=== PATIENT | male | born 1945 | race Caucasian/White ===

== ENCOUNTER → 2023-11-20 | Outpatient (CLI) | payer MEDICARE | END | disposition home or self-care (01) | LOC: LABWHC1 09:51 | PROVIDERS: ATTEND Orthopaedic Surgery | CPT/HCPCS: 86850; 86900; 86901; 87070 ==

== ENCOUNTER 2023-11-28 07:24 | Day surgery (SDC) | payer MEDICARE ==
[~2023-11-28 07:24] MED LIST: HYDROmorphone 0.5 MG/0.5 ML SYRINGE IVP PRN; LIDOCAINE 1% (10MG/ML) FOR IV START INTRADERMA PRN; MAGNESIUM HYDROXIDE 2,400 MG/30 ML CUP PO PRN; MELOXICAM 7.5 MG TAB PO PRN; NALOXONE 0.4 MG/ML 1 ML VIAL IV PRN; ONDANSETRON 4 MG/2 ML VIAL IVP PRN; TRANEXAMIC 1,000 MG/100ML-NACL 1,000 MG in SALINE 1 100ML.BAG IVPB PRN
[2023-11-28] MEDS: IV FLUID CONTINUATION 1,000 ML IV ONE (07:57)
[2023-11-28] MEDS: LACTATED RINGERS 1,000 ML IV SCH (08:35)
[2023-11-28] MEDS: DEXAMETHASONE SOD PHOSPHATE 4 MG/ML 1 ML VIAL IV ONE (08:35)
[2023-11-28] MEDS: ACETAMINOPHEN TAB 500 MG TAB PO PRN (08:35)
[2023-11-28] MEDS: ONDANSETRON 4 MG/2 ML VIAL IVP ONE (08:35)
[2023-11-28] MEDS: GABAPENTIN 300 MG CAP PO PRN (08:36)
[2023-11-28] MEDS: fentaNYL (PF) 50 MCG/ML 2 ML AMP IVP PRN (08:48)
[2023-11-28] MEDS: MIDAZOLAM 2 MG/2 ML VIAL IV PRN (08:48)
--- NOTE | 2023-11-28 09:08 | P.ANPRN ---
Procedure Note - Anesthesia - Nerve Block Performed Right Ludwig Single Time Out Performed: Yes Date of Procedure: 11/28/23 Procedure Start Time: 08:47 Procedure Stop Time: 08:55 Location of Patient: PreOp Indication: Acute Post-Operative Pain, Requested by Surgeon Sedation Type: Sedate with meaningful contact maintained Preparation: Sterile Prep Position: Supine Needle Types: Pajunk Needle Gauge: 21 Ultrasound used to visualize needle placement: Yes Ultrasound used to observe medication spread: Yes Injectate: 0.5% Ropivacaine (see comment for volume) (15 ml + 10 ml NS + 4 mg Dexamethasone) Blood Aspirated: No Pain Paresthesia on Injection Noted: No Resistance on Injection: Normal Image Stored and Saved: Yes Events: Uneventful and Well Tolerated
[2023-11-28] MEDS: ceFAZolin 1,000 MG in SODIUM CHLORIDE 0.9% 1,000 ML IRRIGATION ONE (09:31)
[2023-11-28] MEDS ORDERED: MIDAZOLAM 2 MG/2 ML VIAL ONE (09:56)
[2023-11-28] MEDS ORDERED: SODIUM CHLORIDE 0.9% (PF) 10 ML VIAL ONE (09:56)
[2023-11-28] MEDS ORDERED: PHENYLEPHRINE 10 MG/ML VIAL ONE (09:56)
[2023-11-28] MEDS ORDERED: TRANEXAMIC 1,000 MG/100ML-NACL PREMIX BAG ONE (09:56)
[2023-11-28] MEDS ORDERED: DEXAMETHASONE SOD PHOSPHATE 4 MG/ML 1 ML VIAL ONE (09:56)
[2023-11-28] MEDS ORDERED: ROPIVACAINE 5 MG/ML 30 ML VIAL ONE (09:56)
[2023-11-28] MEDS ORDERED: fentaNYL (PF) 50 MCG/ML 2 ML AMP ONE (09:56)
[2023-11-28] MEDS ORDERED: PROPOFOL 10 MG/ML 20 ML VIAL IV ONE (09:56)
[2023-11-28] MEDS: ROPIVACAINE 5 MG/ML 30 ML VIAL MISCELLANE ONE ×2 (09:57→10:32)
[2023-11-28] MEDS: LACTATED RINGERS 1,000 ML IV ONE (10:33)
--- NOTE | 2023-11-28 10:36 | P.OP ---
Date of Procedure: 11/28/23 Preoperative Diagnosis: Severe osteoarthritis right hip Postoperative Diagnosis: Severe osteoarthritis right hip Procedure(s) Performed: Right total hip arthroplasty with a direct anterior approach Implants: [employer]hew Polarstem standard size 3 with a collar [employer] R3, 3 hole hemispherical acetabular shell, 54 mm [employer]hew Reflection 6.5 mm cancellus screws, 20 mm, 25 mm [employer] R3, XLPE 20 acetabular liner [employer]hew Oxinium femoral head 36 mm, +8 All components were press-fit. The articulation is Oxinium on polyethylene. Anesthesia: spinal Surgeon: Mirza Flynn Guest Specialist #1: Dalia Samaniego Estimated Blood Loss (ml): 200 Pathology: none sent Condition: stable Disposition: PACU Indications for Procedure: After failure of conservative treatment we discussed the surgical and nonsurgical treatment options at length. Patient wishes to proceed with a total hip arthroplasty with a direct anterior approach. Complications specific to this procedure were discussed at length, including but not limited to infection, leg length discrepancy, dislocation, nerve injury, and fracture. Covid-19 was also discussed at length with the patient, and they are aware of the current policies and procedures. The patient was given the option of delaying surgery, but they elect to proceed knowing these risks. Patient is aware of all these complications and informed consent was obtained Operative Findings: The operative findings are consistent with severe osteoarthritis of the right hip Description of Procedure: The patient was seen and evaluated in the preoperative area and the consent was reviewed. The operative site was marked with a skin marker. The patient verified the procedure and operative site. A ROGELIO block was placed by anesthesia in the preoperative area. The patient was then brought to the operating room and given preoperative antibiotics intravenously. 1 g of Tranexamic acid was also given intravenously. A spinal anesthetic was administered by the anesthesia department. The patient was then placed on the Merna table with the bony prominences well-padded. The hip area was then prepped with a ChloraPrep solution and draped in the usual sterile fashion. A universal timeout was then performed, which confirmed the patient's name, surgical site, ALLERGIES, and procedure being performed on the consent. Next the incision site was located at 1 cm distal and 4 cm lateral to the anterior superior iliac spine. The skin and subcutaneous tissues were sharply incised. Incision was carefully dissected down to the fascia overlying the tensor fascia radha muscle. This fascia was then incised in line with the muscle fibers. Care was taken to stay laterally in order to avoid injuring the lateral femoral cutaneous nerve. Next, using blunt finger dissection, the tensor fascia radha muscle was dissected off its investing fascia. The muscle was then carefully retracted laterally with a cobra retractor over the lateral neck of the femur. Next, the circumflex vessels were identified and cauterized using the Aquamantis device. The anterior hip capsule was then exposed. The capsule was then opened and an inverted T fashion. The retractors were then placed intracapsularly. The retractors were maintained intracapsular throughout the procedure. The proximal femur was then visualized. Fluoroscopic x-rays were then taken in order to evaluate the preoperative leg lengths. A small amount of traction was placed on the leg. The femoral neck was then osteotomized at the appropriate level above the lesser trochanter. A small wedge of bone was then removed from the remaining femoral head. Next, using a corkscrew the femoral head was removed from the acetabulum. On gross visual inspection, the femoral head had complete loss of articular cartilage and multiple periarticular osteophytes. The femoral head was then measured. Attention was then turned to the acetabulum. The acetabulum was exposed and any remaining labrum was excised. Sequential reaming of the acetabulum was performed using fluoroscopic guidance until there was a good bed of bleeding cancellus bone. When the appropriate size was reached, a trial was then placed. The position and fit of the trial was checked with fluoroscopy. The trial was then removed. Then, using fluoroscopic guidance, the final implant was impacted at 20 of anteversion and 40 of abduction, and fully seated in the acetabulum. 2 screws were then placed in the acetabulum. Again fluoroscopy was used to check position of the screws. Next, the liner was then impacted, with a 20 elevated liner located in the anterior superior quadrant. Component locking was confirmed. Attention was then directed to the femur. With the aid of the Merna table, the femur was externally rotated to approximately 130, extended, and adducted under the opposite leg. A side hook was then placed under the proximal femur, and the side hook elevator was used to elevate the proximal femur while releasing the capsule. Retractors were then placed. A capsular release was performed, as well as a release of the conjoined tendon, which afforded excellent visualization of the proximal femur. Next, a box osteotome was used to lateralize the proximal femur. A ferryboat deckhand was then used to locate the femoral canal. Sequential broaching was then performed with appropriate size which afforded excellent fixation in the proximal femur. A trial was then placed with appropriate head and neck, and the hip was gently reduced with the aid of the Merna table. Fluoroscopy was then used to check position of the components, as well as to evaluate the leg lengths and offset. The leg lengths and offset were measured as closely as possible to ensure stability of the hip. The hip was then gently dislocated and the trials were then removed. Final implants were then impacted and the hip was again reduced. Final fluoroscopic x-rays confirmed that the components were in anatomic position. The leg lengths and offset were measured and were found to coincide with the trial measurements. The hip was also taken through range of motion, and found to be stable. The hip was then copiously irrigated with antibiotic solution with pulsatile lavage. The hip was then irrigated with Irrisept solution. The soft tissues were then injected with a ropivacaine solution. A second dose of 1 g of Tranexamic acid was also given intravenously. The fascia was then closed with 2-0 strata fix suture. The subcutaneous tissue was closed with 3-0 Vicryl. The subcuticular tissue was closed with 3-0 strata fix suture. The skin was then closed with Exofin skin glue. After the glue and dried, and Optifoam silver impregnated dressing was applied. The patient was then transferred to the recovery room in stable condition. The physical therapist assistant SYLVIA Sanabria was required due to the complexity of surgery, and the need for skilled neurosurgical nurse for positioning, draping, exposure, retraction, and closure of the wound.
--- NOTE | 2023-11-28 10:54 | FL ---
EXAMINATION TYPE: FL guidance operating room, XR Hip Limited RT Intraoperative/procedural fluoroscopi c services were provided. Total fluoroscopy time is 54 seconds with a total of 3 submitted images to PACS. Please see the operative/procedural note for further details. DAP: 2.4 Gycm2
--- NOTE | 2023-11-28 11:21 | XR ---
EXAMINATION TYPE: XR Hip Limited RT DATE OF EXAM: 11/28/2023 11:15 AM CLINICAL INDICATION: Male, 78 years old with history of Status post hip surgery, assess surgical sid youssef; [facility] COMPARISON: None. TECHNIQUE: XR Hip Limited RT; hip was examined in the frontal projections FINDINGS: Post arthroplasty changes, hardware is intact, alignment is appropriate. No evidence of fra cture. Postoperative changes of the soft tissues with subcutaneous gas. No evidence of any acute osse ous pathology or joint dislocation. IMPRESSION: Hip arthroplasty with hardware intact and in appropriate alignment. No acute fracture.
[2023-11-28] MEDS: SODIUM CHLORIDE 0.9% 1,000 ML IV SCH (16:32)
--- NOTE | 2023-11-28 17:50 | P.CONS ---
History of Present Illness - Reason for Consult Consult date: 11/28/23 Medical Management Requesting physician: Mirza Flynn - History of Present Illness History of Presenting Illness: Patient is a very pleasant 78-year-old male with a past medical history of atrial fibrillation status post ablation and pacemaker placement on anticoagulation with Eliquis, hypertension, hyperlipidemia, and osteoarthritis. He is currently admitted under orthopedic surgery team status post elective right total hip arthroplasty completed by Dr. Flynn secondary to severe osteoarthritis of right hip. We were consulted for medical management throughout patient's hospitalization. Patient seen and fully evaluated at bedside in room 457. He reports controlled postoperative pain at this time and denies having any postoperative pain rated 2 out of 10 at this time. Denies postoperative nausea or vomiting. Patient tolerating oral intake with regular diet well. He denies experiencing any urinary retention stating urinating without difficulties after completion of surgical procedure. Patient denies having any headache, lightheadedness, dizziness, chest pain, palpitations, shortness of breath, cough or congestion, abdominal pain, nausea, vomiting, or experiencing any focal numbness or weakness in his extremities. Review of systems: Pertinent positives and negatives as discussed in HPI, a complete review of systems was performed and all other systems are negative. Physical exam: Vital signs reviewed and stable. General: Nontoxic, no distress and appears stated age. Derm: Skin warm and dry, normal coloration for ethnicity. Head: Atraumatic, normocephalic and symmetric. Eyes: EOM's intact, no lid lag, and anicteric sclera Mouth: no lip lesions, mucus membranes moist Cardiovascular: regular rate and rhythm with normal S1S2, no murmur, positive posterior tibial pulses bilaterally, and cap refill < 2 seconds. Lungs: Respirations even, regular, and unlabored on room air. Lungs CTA bilaterally, no rhonchi, no rales, no wheezing, and no accessory muscle usage. Abdominal: soft, nontender to palpation, no guarding, no appreciable organomegaly Ext: Movement and sensation intact.. No gross muscle atrophy, no edema, no contractures. Postoperative dressing intact to right lateral hip, no surrounding erythema, bruising, or drainage. Neuro: Speech clear, face symmetrical and CN II-XII grossly intact with no noted focal neuro deficits Psych: Alert and oriented to person, place, time, and situation. Appropriate and pleasant affect. Assessment and Plan of Care: Status post right total hip arthroplasty Management by primary admitting orthopedic surgery team including DVT prophylaxis, pain management, wound/dressing management, weightbearing, and PT/OT. Paroxysmal atrial fibrillation Continue Eliquis 5 mg twice daily once cleared by orthopedic surgery team to resume, currently they have placed patient on 2.5 mg twice daily. Continue metoprolol 50 mg daily. Hypertension Continue daily medication regimen with metoprolol XL 50 mg daily. Hyperlipidemia Continue daily medication regimen with simvastatin 20 mg nightly. Vital signs reviewed: Blood pressure 127/76, heart rate 91, respiratory rate 17, temp 98.0 F, and SpO2 of 96% on room air. Thank you for allowing us to participate in the care of this pleasant patient. Do not hesitate to contact us with questions. Someone can be reached from the [facility] hospitalist group all hours of the day at [phone] or via [employer]. Patient was seen independently by Nurse Practitioner. This document was prepared using [email or web address] dictation software. Please allow for errors in human resources hr generalist while rare they do occur. I reviewed the documentation as provided by the ZANDRA above, who is the original author of this note. I agree with the documented assessment and plan, with the following changes: none Medications and Allergies Home Medications Medication Instructions Recorded Confirmed Type Apixaban [Eliquis] 5 mg PO BID 11/27/23 11/27/23 History Ascorbic Acid/Collagen Hydr 11/27/23 History [Collagen Plus Vit C Capsule] Cholecalciferol [Vitamin D3 (10 11/27/23 History Mcg = 400 Iu)] Metoprolol Succinate (ER) [Toprol 50 PO HS 11/27/23 11/27/23 History XL] Multivitamin/Iron/Folic Acid 11/27/23 History [Centrum Adults Tablet] Simvastatin [Zocor] 20 mg PO HS 11/27/23 11/27/23 History Zinc Glycinate [Zinc] 11/27/23 History HYDROcodone/APAP 7.5-325MG [[place] 1 - 2 tab PO Q6H PRN #32 tab 11/28/23 Rx 7.5-325] Sennosides [Senokot] 2 tab PO DAILY PRN #60 tablet 11/28/23 Rx Allergies Allergy/AdvReac Type Severity Reaction Status Date / Time No Known Allergies Allergy Verified 11/28/23 08:06 Physical Exam Vitals: Vital Signs Temp Pulse Pulse Resp BP Pulse Ox 11/28/23 15:00 96 16 127/69 96 11/28/23 14:00 97 16 123/77 97 11/28/23 13:30 93 16 113/67 98 11/28/23 13:00 90 16 114/71 98 11/28/23 12:45 90 16 116/64 97 11/28/23 12:30 89 16 110/72 98 11/28/23 12:15 87 16 112/70 98 11/28/23 12:00 88 16 102/65 96 11/28/23 11:50 88 16 107/56 97 11/28/23 11:35 79 16 102/55 97 11/28/23 11:24 89 16 106/56 97 11/28/23 11:09 94 16 94/52 97 11/28/23 10:54 97.5 F L 85 14 96/57 96 11/28/23 09:08 92 20 140/69 97 11/28/23 08:05 97.4 F L 105 H 16 136/80 97 Intake and Output 11/28/23 11/28/23 11/28/23 06:59 14:59 22:59 Intake Total 1051 200 Output Total 200 Balance 851 200 Intake: IV 1051 200 Output: Estimated Blood Loss 200 Other: Weight 77.4 kg Results CBC & Chem 7: 11/29/23 05:34 11/29/23 05:34
[2023-11-28] MEDS: SENNOSIDES-DOCUSATE SODIUM 1 EACH TAB PO SCH (21:16)
[2023-11-28] MEDS: ATORVASTATIN 10 MG TAB PO SCH (21:16)
[2023-11-28] MEDS: METOPROLOL SUCCINATE (ER) 50 MG TAB.ER.24H PO SCH (21:16)
[2023-11-28] MEDS: HYDROcodone/APAP 7.5-325MG 1 EACH TAB PO PRN (21:17)
[2023-11-29] MEDS: HYDROcodone/APAP 7.5-325MG 1 EACH TAB PO PRN (01:43)
[2023-11-29 08:26] VITALS: BP 106/67; PULSE 68; RESP 17; TEMP 97.6
[2023-11-29] MEDS: APIXABAN 2.5 MG TABLET PO SCH (08:52)
[2023-11-29 09:22] LABS: BUN/Creat Ratio 13.31 Ratio (12.00-20.00); Blood Urea Nitrogen 17.3 mg/dL (9.0-27.0); Calcium 8.7 mg/dL (8.7-10.3); Chloride 104 mmol/L (96-109); Glucose 151 mg/dL (70-110); Magnesium 2.2 mg/dL (1.5-2.4); Potassium 4.7 mmol/L (3.5-5.5); Sodium 141 mmol/L (135-145)
[2023-11-29 09:43] LABS: Basophils # (A) 0.01 X 10*3/uL (0.00-0.10); Basophils % (A) 0.1 %; Eosinophils # (A) 0 X 10*3/uL (0.04-0.35); Eosinophils % (A) 0 %; HCT 46.5 % (39.6-50.0); HGB 16.4 g/dL (13.0-17.0); Lymphocytes # (A) 1.35 X 10*3/uL (0.90-5.00); Lymphocytes % (A) 10.1 %; MCH 32.5 pg (27.0-32.0); MCHC 35.3 g/dL (32.0-37.0); MCV 92.1 FL (80.0-97.0); Mean Platelet Volume 9.9 FL (9.5-12.2); Monocytes # (A) 1.33 X 10*3/uL (0.20-1.00); NRBC Per 100 WBC 0 X 10*3/uL (0.00-0.01); Neutrophils # (A) 10.59 X 10*3/uL (1.80-7.70); Neutrophils % (A) 79.2 %; Platelet Count 157 X 10*3/uL (140-440); RBC 5.05 X 10*6/uL (4.40-5.60); RDW 12.7 % (11.5-14.5); WBC 13.36 X 10*3/uL (4.50-10.00)
--- NOTE | 2023-11-29 10:09 | P.DS ---
Providers Expected date of discharge: 11/29/23 Attending physician: Mirza Flynn Consults: 11/28/23 07:15 Consult Physician Routine Consulting Provider: Zulema Crawford Consult Reason/Comments: medical management Do you want consulting provider notified?: Yes Primary care physician: Stated None - Discharge Diagnosis(es) (1) Osteoarthritis of right hip Current Visit: Yes Status: Acute (2) S/P total hip arthroplasty Current Visit: Yes Status: Acute Hospital Course: This is a 78-year-old male with known history of degenerative arthritis of the right hip. The patient presented for evaluation as an outpatient. After discussion and consideration patient elects to proceed with total hip arthroplasty. The patient is seen preoperatively by Dr. Flynn and medically cleared for surgery by their primary care physician. Patient is admitted to [facility] on 11/28/2023 for for total hip arthroplasty. The procedure is performed without complication or sequelae. The patient is doing well postoperatively. Labs and vital signs are stable on day of discharge. On day of discharge patient's hip incision is healing well. There is minimal erythema. There is no drainage noted at this time. There is minimal soft tissue swelling to the hip and thigh. Patient has full foot and ankle motion without difficulty or pain. Calf is soft and nontender to palpation. Neurovascular status to the right lower extremity is intact. Patient is discha rged home in good condition. Please see med rec for accurate list of home medications. Plan - Discharge Summary Discharge Rx Participant: No New Discharge Prescriptions: New HYDROcodone/APAP 7.5-325MG [[place] 7.5-325] 1 - 2 tab PO Q6H PRN #32 tab PRN Reason: Pain Sennosides [Senokot] 2 tab PO DAILY PRN #60 tablet PRN Reason: Constipation No Action Simvastatin [Zocor] 20 mg PO HS Zinc Glycinate [Zinc] Multivitamin/Iron/Folic Acid [Centrum Adults Tablet] Cholecalciferol [Vitamin D3 (10 Mcg = 400 Iu)] Ascorbic Acid/Collagen Hydr [Collagen Plus Vit C Capsule] Apixaban [Eliquis] 5 mg PO BID Metoprolol Succinate (ER) [Toprol XL] 50 PO HS Discharge Medication List Apixaban [Eliquis] 5 mg PO BID 11/27/23 [History] Ascorbic Acid/Collagen Hydr [Collagen Plus Vit C Capsule] 11/27/23 [History] Cholecalciferol [Vitamin D3 (10 Mcg = 400 Iu)] 11/27/23 [History] Metoprolol Succinate (ER) [Toprol XL] 50 PO HS 11/27/23 [History] Multivitamin/Iron/Folic Acid [Centrum Adults Tablet] 11/27/23 [History] Simvastatin [Zocor] 20 mg PO HS 11/27/23 [History] Zinc Glycinate [Zinc] 11/27/23 [History] HYDROcodone/APAP 7.5-325MG [[place] 7.5-325] 1 - 2 tab PO Q6H PRN #32 tab 11/28/23 [Rx] Sennosides [Senokot] 2 tab PO DAILY PRN #60 tablet 11/28/23 [Rx] Follow up Appointment(s)/Referral(s): Aristeo Rashid MD [REFERRING] - 1 Week (Please call and schedule appointment after discharge for establishing care with PCP and post hospitalization follow up) Mirza Flynn DO [Doctor of Osteopathic Medicine] - 12/13/23 3:20 pm (with Dalia) Activity/Diet/Wound Care/Special Instructions: Weightbearing as tolerated with walker. Leave dressing intact. Dressing may be removed by home care nurse or by patient in 7 days. Then change dressing twice daily until follow up. May shower with initial dressing intact and after removal. If dressing become saturated, please remove. Please resume Eliquis. Recommend use of compression stockings daily until follow up to help prevent swelling and blood clots. May remove at night before sleeping. Please follow-up with [facility] in 2 weeks and call with any questions or concerns, . Discharge Disposition: HOME WITH HOME HEALTH SERVICES
[2023-11-29] MEDS ORDERED: APIXABAN 5 MG TAB PO SCH (21:00)
== END 2023-11-29 10:48 | disposition home health service (06) ==
LOC: OR 07:24 → 4SSUR 10:48 → EDSTATUS 11:20 → OR 11-29 10:48
PROVIDERS: ATTEND Orthopaedic Surgery
DX: M16.11 Unilateral primary osteoarthritis, right hip (principal); G89.18 Other acute postprocedural pain; I48.0 Paroxysmal atrial fibrillation; I10 Essential (primary) hypertension; E78.49 Other hyperlipidemia; Z95.0 Presence of cardiac pacemaker; Z79.01 Long term (current) use of anticoagulants; Z79.899 Other long term (current) drug therapy; Z85.46 Personal history of malignant neoplasm of prostate; Z86.711 Personal history of pulmonary embolism
CPT/HCPCS: 64447; 73501; 80048; 83735; 85025